=== PATIENT | male | born 1995 | race Hispanic/Latino ===

== ENCOUNTER 2024-05-25 12:49 | Emergency (ER) | payer OTHER ==
[~2024-05-25] VITALS: Ht 167.6 cm; Wt 103.0 kg
[2024-05-25 13:00] VITALS: PULSE 106; RESP 20; TEMP 100.1; O2SAT 97
[2024-05-25] MEDS ORDERED: PROBIOTIC & AC1 EACH PO (13:10)
[2024-05-25] MEDS ORDERED: DOXYCYCLINE HY100 MG PO (13:10)
[2024-05-25] MEDS ORDERED: IBUPROFEN200 MG PO (13:10)
[2024-05-25] MEDS ORDERED: AMOX TR-K CLV1 EAC2 PO (13:10)
[2024-05-25] MEDS: KETOROLAC TROMETHAMINE 30 MG/ML VIAL IV ONE (13:26)
[2024-05-25] MEDS ORDERED: ONDANSETRON ODT4 MG PO (13:36)
[2024-05-25] MEDS ORDERED: MUPIROCIN22 GM TOP (13:36)
[2024-05-25] MEDS: ONDANSETRON HCL INJ 2MG/ML 2ML 2 MG/ML VIAL IV ONE (13:38)
[2024-05-25] MEDS: LACTATED RINGER'S 1,000 ML INJ ONE (13:38)
[2024-05-25] MEDS ORDERED: ONDANSETRON HCL INJ 2MG/ML 2ML 2 MG/ML VIAL ONE (13:42)
[2024-05-25] MEDS ORDERED: LACTATED RINGER'S 1,000 ML ONE (13:42)
[2024-05-25] MEDS: TETANUS/DIPHTHERIA TOX ADULT 0.5 ML SYR IM STA (14:35)
== END 2024-05-25 14:30 | disposition home or self-care (01) ==
LOC: FSED 12:53
DX: S81.851A Open bite, right lower leg, initial encounter (principal); L08.9 Local infection of the skin and subcutaneous tissue, unspecified; W54.0XXA Bitten by dog, initial encounter; Y92.89 Other specified places as the place of occurrence of the external cause; R11.0 Nausea; R00.0 Tachycardia, unspecified
CPT/HCPCS: 80053; 85025; 90471; 90714; 99284; J1885; J2405; J2543; J7121